=== PATIENT | female | born 1960 | race Caucasian/White ===

== ENCOUNTER → 2017-10-23 | Outpatient (CLI) | payer BC ==
--- NOTE | 2017-10-23 14:28 | CT ---
HISTORY: Right flank pain. History of renal stones. Study: CT abdomen and pelvis without contrast. Comparison: None. Technique: Multiple axial images of the abdomen and pelvis were obtained from the lung bases to the p ubic symphysis without the administration of IV contrast. Findings: The included portions of the lung bases are clear. The liver, gallbladder, pancreas, spleen , adrenal glands and left kidney are unremarkable in their noncontrast CT appearance. There is an obs tructing 3 mm calculus in the proximal right ureter with mild hydronephrosis on the right. There is n o nephrolithiasis. No additional calculi are noted along the course of the right or left ureter. The urinary bladder is partially distended and grossly unremarkable. The uterus and ovaries are present. There are no pericecal inflammatory changes or secondary signs of acute appendicitis. There is a mode rate amount of stool in the ascending and transverse colon. The descending and rectosigmoid colon are incompletely distended and not optimally evaluated. There is no small bowel dilatation. There is mil d nonspecific stranding within the central mesentery without associated lymphadenopathy. There is no intraperitoneal free air or free fluid. The abdominal aorta is nonaneurysmal. The bony structures are grossly intact. IMPRESSION: Obstructing 3 mm calculus in the proximal right ureter with mild hydronephrosis on the right. Reported By:
== END | disposition home or self-care (01) | DRG 696 ==
LOC: RAD 13:18
PROVIDERS: ATTEND Internal Medicine
DX: R31.9 Hematuria, unspecified (principal); N13.2 Hydronephrosis with renal and ureteral calculous obstruction
CPT/HCPCS: 74176